=== PATIENT | male | born 1960 | race African-American/Black ===

== ENCOUNTER 2022-12-11 06:04 | Emergency (ER) | payer SELFPAY ==
[~2022-12-11] VITALS: Ht 182.9 cm; Wt 73.0 kg
[2022-12-11 06:18] VITALS: BP 160/115
[2022-12-11 09:52] LABS: BASOPHILS % 0.5 % (0.0-2.0); EOSINOPHILS % 1.4 % (0.0-5.0); HEMATOCRIT. 43.9 % (42.0-52.0); HEMOGLOBIN. 13.9 g/dL (14.0-18.0); MEAN CORPUSCULAR HEMOGLOBIN 26.2 pg (28.0-32.0); MEAN CORPUSCULAR VOLUME 82.5 fL (80.0-94.0); MEAN PLATELET VOLUME 9.1 fl (7.4-10.4); NEUTROPHILS % 67.1 % (40.0-76.0); PLATELET 267 x1000/uL (130-400); RED BLOOD CELL COUNT 5.32 mill/uL (4.7-6.1)
[2022-12-11 09:59] LABS: CHLORIDE 106 mEq/L (98-107)
[2022-12-11 10:07] LABS: ETHANOL BLOOD < 10 mg/dL
== END 2022-12-11 11:10 | disposition left against medical advice (07) ==
LOC: ER 06:04
DX: F19.90 Other psychoactive substance use, unspecified, uncomplicated (principal); Z59.02 Unsheltered homelessness
CPT/HCPCS: 36415; 80053; 80320; 85025; 99283; G0480

== ENCOUNTER 2022-12-12 13:13 | Emergency (ER) | payer SELFPAY ==
[~2022-12-12] VITALS: Ht 180.3 cm; Wt 78.0 kg
[2022-12-12 13:19] VITALS: BP 145/77
[2022-12-12] MEDS ORDERED: ACETAMINOPHEN 325MG TABLET PO ONE (13:30)
== END 2022-12-12 13:41 | disposition home or self-care (01) ==
LOC: ER 13:22
DX: S90.822A Blister (nonthermal), left foot, initial encounter (principal); S90.821A Blister (nonthermal), right foot, initial encounter; X58.XXXA Exposure to other specified factors, initial encounter; Y93.89 Activity, other specified; Y92.89 Other specified places as the place of occurrence of the external cause; Y99.8 Other external cause status
CPT/HCPCS: 99283